=== PATIENT | female | born 1950 | race Caucasian/White ===

== ENCOUNTER 2023-10-11 13:52 | Outpatient (AMB) | payer MEDICARE, OTHER, SELFPAY ==
--- NOTE | 2023-10-11 14:18 | MHC.OFFWIV ---
Intake Vital Signs 10/11/23 14:19 Height 5 ft 3 in Weight 190 lb BMI 33.7 BP 112/80 Blood Pressure Location Lt brachial Position Sitting Pulse 80 Pulse Source Pulse Oximeter Temp 97.5 F Temp Source Temporal Artery Scan Pulse Oximetry (%) 95 Oxygen Delivery Method Room Air Intake Visit Reasons: [employer] Wax removal Intake Note: pt c/o impacted cerumen. Started in LT ear 2 days ago. RT ear feels blocked now Patient Tobacco Use Status: Never used Tobacco Allergies amoxicillin Allergy (Unknown, Verified 10/11/23 14:26) rash clarithromycin [Omeclamox-Gurmeet] Allergy (Unknown, Verified 10/11/23 14:26) Anaphylaxis omeprazole [Omeclamox-Gurmeet] Allergy (Unknown, Verified 10/11/23 14:26) Anaphylaxis Do you need a note to return to daycare/school/sports/work: No HPI HPI Comments History of Present Illness Details This is a 72-year-old female who presented to the walk-in clinic complaining of bilateral blocked ears, left greater than right. She states the left has been worsening for a little while but the right just started yesterday. She denies any significant otalgia. She is otherwise feeling well. [facility] Social History Patient Tobacco Use Status: Never used Tobacco Review of Systems Const All systems reviewed & are unremarkable except as noted in HPI and below Reports no additional complaints Eyes Reports no additional complaints ENT Reports no additional complaints Card Reports no additional complaints Resp Reports no additional complaints GI Reports no additional complaints Reports no additional complaints Musc Reports no additional complaints Skin/Breast Reports system reviewed and no additional complaints, except as documented Neuro Reports no additional complaints Psych Reports no additional complaints Endo Reports no additional complaints Danilo/Lymph Reports no additional complaints Aller/Immun Reports no additional complaints Physical Exam Vital Signs: Last Vital Signs Temp 97.5 F 10/11/23 14:19 Pulse 80 10/11/23 14:19 BP 112/80 10/11/23 14:19 Pulse Ox 95 10/11/23 14:19 Oxygen Delivery Method Room Air 10/11/23 14:19 BMI result Body Mass Index 33.7 Const Other: Vital signs reviewed. Constitutional: Non-toxic appearing. No acute distress. Well-developed and well-nourished. HEENT: Normocephalic and atraumatic. Cerumen impaction bilaterally (left greater than right). Skin: Warm and dry. No rashes or lesions noted. Neck: Full and painless range of motion. Cardio: Regular rate. No lower extremity edema. No JVD. Pulmonary: No respiratory distress. No accessory muscle usage. Gastrointestinal: Soft and non-distended in all 4 quadrants. Musculoskeletal: Normal range of motion in joints throughout the body. No deformity or other signs of injury. Neuro: Alert and oriented x4. Cranial nerves 2-12 grossly intact. No focal deficits appreciated. Psych: Normal mood and affect. Office Procedures Cerumen Removal From which ear canal was the cerumen removed: bilateral Removal: irrigation Notes: patient tolerated procedure well [id number] Irrigation/Lavage Assessment & Plan Assessment & Plan (1) Impacted cerumen of both ears: Code(s): H61.23 - Impacted cerumen, bilateral Plan: This is a 72-year-old female who presented to the office complaining of bilateral cerumen impaction. On physical examination, there is cerumen impaction bilaterally. Patient underwent cerumen removal versus ear irrigation. On reexamination, the ear canals are clear and tympanic membranes are clear without erythema, edema, or bulging bilaterally. Patient reports feeling much better. Patient was advised to follow-up here for recurrent symptoms. Coding Level of Care Code New Pt Level 3 (41770) Diagnoses Impacted cerumen of both ears H61.23 CPT Codes Office Procedure - CPT: 41175-Mbt Irrigation/Lavage ([id number])
[2023-10-11 14:19] VITALS: BP 112/80; PULSE 80; TEMP 36.4; O2SAT 95; BMI 33.7
== END 2023-10-11 15:39 | disposition home or self-care (01) ==
PROVIDERS: PCP Nurse Practitioner Primary Care; Visit Provider Physician Assistant Medical
DX: H61.23 Impacted cerumen, bilateral (principal)
CPT/HCPCS: 69209; 99203

== ENCOUNTER 2024-12-25 13:26 | Outpatient (AMB) | payer MEDICARE, OTHER, SELFPAY ==
--- NOTE | 2024-12-25 13:35 | MHC.OFFWIV ---
Intake Vital Signs 12/25/24 13:39 Height 5 ft 2.5 in Weight 183 lb BMI 32.9 BP 136/80 Blood Pressure Location Lt brachial Position Sitting Pulse 72 Pulse Source Pulse Oximeter Temp 97.8 F Temp Source Oral Pulse Oximetry (%) 98 Oxygen Delivery Method Room Air Intake Visit Reasons: EP Discomfort in right knee Intake Note: Patient presents with right knee soreness x1 month. Patient Tobacco Use Status: Never used Tobacco Allergies amoxicillin Allergy (Unknown, Verified 12/25/24 13:38) rash clarithromycin (Omeclamox-Gurmeet) Allergy (Unknown, Verified 12/25/24 13:38) Anaphylaxis omeprazole (Omeclamox-Gurmeet) Allergy (Unknown, Verified 12/25/24 13:38) Anaphylaxis Do you need a note to return to daycare/school/sports/work: No HPI HPI Comments History of Present Illness Details History of Present Illness - The patient is a 74-year-old female presenting with knee pain following an injury sustained a month ago. - The injury occurred when the patient's knee got stuck under the steering wheel while at a car wash, causing pain on the inside of the knee. - Initially, the knee was sore, and the patient experienced difficulty walking. - The patient reports soreness behind the knee, particularly when flexing the leg, but denies any pain or instability. - The patient has been managing the condition with ice, NSAIDs, and various topical rubs, which have provided temporary relief. - The patient has been wearing a knee brace and performing stretching exercises, although some exercises aggravated the condition. - The patient denies any history of Hartman's cyst or arthritis in the affected knee. - The patient reports improvement in symptoms but notes persistent tightness when ascending or descending stairs. Review of Systems - Musculoskeletal: Reports soreness behind the knee, denies pain or instability. All systems reviewed and are unremarkable except as noted in HPI Physical Exam General: Cooperative, healthy appearing, comfortable, no acute distress and well developed Orientation: Patient oriented x3 Limitations: ambulates normally Head: Normal to inspection Ears: Hearing grossly normal bilaterally Face and sinus: Normal facial exam Eyes: Appearance normal, both eyes and all related structures Neck: Normal visual inspection, full ROM Respiratory: Normal respiratory effort and able to speak in complete sentences. Skin: No rashes or lesions noted Neuro: Patient oriented x3, gait with cane normal Back/spine: no TTP cervical, thoracic or lumbar spine Extremities: knee negative patellar ballottment, no TTP anterior or posterior knee, neg anterior and posterior drawer test, neg varus and valgus joint laxity, full ROM, no skin changes. PFSH Social History Patient Tobacco Use Status: Never used Tobacco Physical Exam Vital Signs: Last Vital Signs Temp 97.8 F 12/25/24 13:39 Pulse 72 12/25/24 13:39 BP 136/80 12/25/24 13:39 Pulse Ox 98 12/25/24 13:39 Oxygen Delivery Method Room Air 12/25/24 13:39 BMI result Body Mass Index 32.9 Assessment & Plan Assessment & Plan (1) MCL sprain of right knee: Code(s): S83.411A - Sprain of medial collateral ligament of right knee, initial encounter Qualifiers: Encounter type: initial encounter Qualified Code(s): S83.411A - Sprain of medial collateral ligament of right knee, initial encounter Plan: Assessment and Plan Knee ligament strain - The patient likely strained the ligaments in the knee, which requires more time to heal. - The recommendation is to reduce walking and rest the knee to allow for recovery. - Ice and topical NSAIDs like Voltaren Gel are advised for symptom relief. - If symptoms persist beyond two to three weeks, further evaluation by an health and nutrition specialist may be necessary. Patient was informed and verbally consented to the use of an ambient scribe for clinic note documentation during this visit. Coding Level of Care Code New Pt Level 3 (05649) Diagnoses Sprain of medial collateral ligament of right knee, initial encounter S83.411A Encounter type: initial encounter
[2024-12-25 13:39] VITALS: BP 136/80; PULSE 72; TEMP 36.6; O2SAT 98; BMI 32.9
--- OUTSIDE RECORDS SUMMARY | 2024-12-25 16:04 | XMS_ITS | Encounter Summary ---
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 Name Role Phone Jackson Palafox CNP Primary Care Provider Encounter Details Date Type Department Care Team (Late st Contact Info) Description 06/08/2024 Transcribe Orders [facility] Oncology Virtual Department [address] [place], [place] [id number] Jackson Palafox CNP [address] [place] [address] [email or web address] Social History Tobacco Use Types Packs/Day Years Used Date Smoking Tobacco: Former Cigarettes 0.2 46.5 0 06/26/1973 - 12/2019 Smokeless Tobacco: Never Alcohol Use Standard Drinks/Week Comments No 0 (1 standard drink = 0.6 oz pur e alcohol) Child or Family Care Answer Date Record ed Do you have problems with on e of the following making it difficult for you to work, study, or receive health care? No 01/04/2021 Education Answer Date Recorded Are you interested in more education? Not on carol e 01/08/2023 Are you concerned about learning? Not on file 01/08/2023 No 01/08/2023 No 01/08/2023 Food Answer Date Recorded Within the past 6 months we worried whether our food would run out before we got money to buy more. Never True 01/04/2021 Within the past 6 months the food we bought just didn't last and we didn't have enough money to get more. Never True Residential Stability Answer Date Recor ded What is your housing situation today? I have grace casey 01/04/2021 How many times have you move d in the past 12 months? Zero (I did not move) 01/04/2021 06 Are you worried that in t he next 2 months, you may not have your own housing to live in? No 01/04/2021 Paying for Meds Answer Date Recorded Do you have trouble paying for medicines? No 01/04/2021 Paying Utility Bills Answer Date Record ed Do you have trouble paying your heating or elect ricity bill? No 01/04/2021 Transportation Answer Date Recorded Has the lack of transportati on kept you from medical appointments or from getting medications? No 01/04/2021 Unemployment Answer Date Recorded Are you currently unemployed or working on a part-time or temporary basis, and looking for work? No 01/04/2021 Digital Access Answer Date Recorded No 08/03/2022 No 08/03/2022 Reliable internet access at home? Not on file 08/03/2022 Device with a working camera? Not on file Intimate Partner Violence Answer Date R ecorded Denied Basic Needs Not on file 01/09/2024 In the past 12 months have y ou been in a relationship with a person who hurts, threatens, or tries to control you? No 01/09/2024 Worried food would run out Not on file 01/08 In the past 12 months have y ou been in a relationship with a person who hurts, threatens, or tries to control you? 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 Not on file Not on file Not on file documented as of this encounter Plan of Treatment Upcoming Encounters Date Type Department Care Team (Late st Contact Info) Description 01/12/2025 2:30 PM EST Office Visit [facility] [address] [place] [address] Jackson Palafox CNP [address] [place] [address] 02/01/2025 1:20 PM EST Office Visit [facility] [address] [place] [address] Savanna Gifford MD [address] [place] [phone] [email or web address] documented as of this encounter Visit Diagnoses Not on filedocumented in this encounter Additional Health Concerns Assessment Noted Time PHQ-2 Depression Total Score: 2 01/09/20 24 11:48 AM EDT documented as of this encounter Care Teams [employer] Machine Operator Relationship Specialty Start Date End Date Jackson Palafox CNP [address] [place] [address], [address] [place] [address] PCP - General Family Medicine 04/03/23 documented as of this encounter Additional Source Comments The information contained in this document represents components of the legal health record. It is not the complete legal health record.[facility]
--- OUTSIDE RECORDS SUMMARY | 2024-12-25 16:04 | XMS_ITS | Clinical Summary ---
Author Organization [facility] Address [address] [place] [address] Phone Care Team Providers Care Bundle Tier Name Role Phone Jackson Palafox Jenny JOSEPH Primary Care Provider Allergies Active Allergy Reactions Criticality Noted Date Comments Amoxicillin Rash,Hives Low 05/14/1999 Medications cholecalciferol (VITAMIN D3) 1,000 unit tablet Take 1 tablet by mouth daily. Active Medication-Free Text Magnesium 500 MG Tablet, Si tablet with a meal Orally Once a day Active vit C,V-equfur-pcakifc hin-minerals (PRESERVISION AREDS-2) capsule 2 (two) times a day. 2 Active cetirizine (ZYRTEC) 10 MG tablet Take 10 mg by mouth as needed for allergies. OTC Active estradioL (ESTRACE) 0.01 % (0.1 mg/gram) vaginal cream Place 2 g vaginally 2 (two) times a week. 4 Active FLUoxetine (PROZAC) 10 MG capsuleIndications :Anxiety TAKE 3 CAPSULES BY MOUTH EVERY DAY 270 capsule 3 5 Active hydroCHLOROthiazid e 25 MG tabletIndications: Essential hypertension TAKE 1 TABLET (25 MG TOTAL) BY MOUTH DAILY. 90 tablet 3 5 Active fluticasone propionate (FLONASE) 50 mcg/actuation nasal sprayIndications:P ND (post-nasal drip) SPRAY 2 SPRAYS BY NASAL ROUTE DAILY 48 mL 1 5 Active ibandronate (BONIVA) 150 mg tablet Take 1 tablet (150 mg total) by mouth every 30 (thirty) days. Take in AM with glass of water prior to food, don't lie down for 30 minutes. 3 tablet 3 5 Active CALCIUM ACETATE ORAL Take by mouth. Active clonazePAM (KLONOPIN) 1 MG tabletIndications: Anxiety TAKE 1/2 TABLET (0.5 MG) BY MOUTH 2 TIMES A DAY NEEDED FOR ANXIETY. 90 tablet 5 Active simvastatin (ZOCOR) 20 MG tabletIndications: Mixed hyperlipidemia Take 1 tablet (20 mg total) by mouth nightly at bedtime. 90 tablet 3 5 Active Active Problems Problem Noted Date Diagnosed Date Vitamin D deficiency 01/14/2024 Overview (01/14/2024): cont supplements Assessment & Plan (05/29/2024 10:57 PM EDT): Was over replaced in 01/2024 while taking 2000 IU D3 daily. Dose decreased to 6 days/week. -Will recheck with next labs Generalized anxiety disorder 01/14/2024 Overview (01/14/2024): cont meds Chronic bilateral low back pain without sciatica 01/09/2023 Chronic prescription benzodiazepine use 01/10/20 23 Hypercholesterolemia 09/09/2022 Overview (01/14/2024): cont meds, due for labs Glaucoma 09/09/2022 Age-related osteoporosis wit hout current pathological fracture 06/26/2018 Assessment & Plan (05/29/2024 11:03 PM EDT): 73-year-old woman diagnosed with osteoporosis on DEXA in 02/2024 with lowest T- score of -3.1 at the lumbar spine and osteopenia at the hip, femoral neck T-score - 2.2. She recalls osteopenia on previous DEXA about 10 years ago. No history of fractures. She lost about 1.5 inches in height. Risk factors for bone loss include early menopause at age 42 though she was treated with HRT for 7 to 8 years. Family history of osteoporosis in mother and sister without fracture. Patient has not tried any osteoporosis medication other than HRT. Her dietary calcium intake is low and she stopped her calcium supplement about 8 years ago because of constipation. She has been on vitamin D supplement with over replacement as of 01/2024. No history of kidney stone. She is doing stretching exercises and walking but no regular resistance exercises. Reviewed normal bone physiology across the lifespan. Reviewed role of adequate calcium, vitamin D, weight-bearing exercise & avoidance of falls along with pharmacologic rx with indications, risks & benefits. Directed to written literature from UpToDate and the bone health and osteoporosis foundation. We discussed medication options, including anti-resorptives, i.e. bisphosphonates, either oral or IV; denosumab, serums like Evista and anabolic agents like teriparetide or Evenity. We discussed the potential risk of ONJ & AFF with the anti-resorptives & concept of a drug holiday after a period of time with the bisphosphonates to help limit the risk of side effects. She is leaning towards using once monthly Boniva -Increase dietary calcium with a goal of 1200 mg daily -Add some resistance exercises -Will check labs to rule out hyperparathyroidism and renal calcium leak -Start Boniva monthly if no contraindication. -Monitor serum CTX on oral antiresorptive -Repeat DEXA after 02/16/2026 Anxiety 06/25/2017 Hypertensive disorder 06/25/2017 Sacroiliac inflammation 06/25/2017 Seasonal allergies 06/25/2017 Resolved Problems Problem Noted Date Diagnosed Date Resolved Date Age-related cataract of both eyes 07/02/2023 07/14/2024 Mixed hyperlipidemia 06/25/2017 024 Encounters Date Type Department Care Team Description 10/23/2024 Orders Only [facility] [place] [address] Jackson Palafox CNP from Last 3 Months Immunizations Immunization Administration Dates Next Due COVID-19 (Pre-12/31) Pfizer Vaccine, mRNA, PF 06/29/2020,06/07/2020 INFLUENZA, SPLIT VIRUS, TRIVALENT PF 01/13/2016 INFLUENZA, SPLIT VIRUS, TRIV ALENT W/ PRESERVATIVE IM 11/30/2013,12/13/2010 Influenza High-Dose Quadriva lent Preservative Free IM 01/05/2022,11/02/2019 Influenza High-Dose Trivalen t Preservative Free IM 12/06/2023,11/18/2018,11/25/2017,12/14 Influenza Quadrivalent Adjuv anted Preservative Free IM 11/30/2022,12/16/2020 Influenza trivalent preserva tive free intradermal 11/27/2012 Influenza, Unspecified Formulation 12/17/2008 Pneumococcal conjugate PCV13 06/25/2017 Pneumococcal polysaccharide PPSV23 01/05/2021, Tdap 04/01/2019,12/13/2010 Zoster live 07/24/2016,08/25/2012 Zoster recombinant 04/22/2020,12/01/2019 Family History Medical History Relation Comments Thyroid disease Daughter Early Father CV disease Mother Diabetes mellitus Mother Kidney disease Mother Anxiety disorder Sister Thyroid disease Sister Relation Status Comments Daughter Alive Father (Age 47) Mother (Age 84) Sister Alive Social History Tobacco Use Types Packs/Day Years Used Date Smoking Tobacco: Former Cigarettes 0.2 46.5 0 06/26/1973 - 12/2019 Smokeless Tobacco: Never Tobacco Cessation:Counseling Given: Not Answered Alcohol Use Standard Drinks/Week Comments No 0 [...] Job Start Date Job End Date 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 Not on file Not on file Not on file Last Filed Vital Signs Vital Sign Reading Time Taken Comments Blood Pressure 98/60 07/14/2024 1:50 PM EDT Pulse 79 07/14/2024 1:50 PM EDT Temperature 36.4 C (97.5 F) 07/14/2024 1:50 PM EDT Respiratory Rate 16 01/09/2023 2:22 PM EDT Oxygen Saturation 98% 07/14/2024 1:50 PM EDT Inhaled Oxygen Concentration - - Weight 81.4 kg (179 lb 6.4 oz) 07/14/2024 1:50 P M EDT Height 158.8 cm (5' 2.52 ) 07/14/2024 1:50 PM ED T Body Mass Index 32.27 07/14/2024 1:50 PM EDT Plan of Treatment Upcoming Encounters Date Type Department Care Team (Late st Contact Info) Description 01/12/2025 2:30 PM EST Office Visit [facility] [address] [place] [address] Jackson Palafox, MOLDED GOODS INSPECTOR TRIMMER [address] [facility], [address] [place] [address] 02/01/2025 1:20 PM EST Office Visit [facility] [address] [place] [address] Savanna Gifford MD [address] [place] [phone] [email or web address] Health Maintenance Due Date Last Done Comments COLONOSCOPY 10/12/1996 FOBT 10/12/1996 SIGMOIDOSCOPY 10/12/1996 VIRTUAL COLONOSCOPY 10/12/1996 FIT TEST 07/19/2017 07/19/2016 COLOGUARD 07/22/2023 07/21/2020 COLORECTAL CANCER SCREENING 07/22/2023 INFLUENZA VACCINE (#1) 2024 , 11/30/2022, 01/05/2022, Additional history exists COVID-19 VACCINE ( season) 2024 01/22/2022, 01/13/2021, 06/29/2020, Additional history exists DEPRESSION SCREENING 01/08/2025 01/09/2024 BLOOD PRESSURE 01/14/2025 07/14/2024 POTASSIUM LEVEL 06/04/2025 06/04/2024, 11/0 07/2023, 01/02/2023, Additional history exists MAMMOGRAM 06/06/2025 06/07/2023, 05/11, 01/11/2021, Additional history exists RSV VACCINE (1 - 1-dose 75+ series) 10/12/2026 LIPID PANEL 01/13/2029 01/14/2024, 12/10, 07/06/2021, Additional history exists Adult Td,Tdap Booster 04/01/2029 04/01/2019, 011 SMOKING STATUS SCREENING (Every 5 Years) 07/14/2029 07/14/2024 ZOSTER VACCINES Completed 04/22/2020, 11/10, 07/24/2016, Additional history exists PNEUMOCOCCAL VACCINES (50+ years) Completed 01/05/2021, 06/25/2017, 05/28/2014 HEPATITIS C SCREENING Completed 07/06/2021 OSTEOPOROSIS SCREENING INITIAL (ONE-TIME) Completed 03/06/2024, 01/09/2023, 01/29/2018 HEPATITIS A VACCINES Aged Out No long er eligible based on patient's age to complete this topic HIB VACCINES Aged Out No longer eligi ble based on patient's age to complete this topic MENINGOCOCCAL VACCINES (ACWY) Aged Out No longer eligible based on patient's age to complete this topic MENINGOCOCCAL VACCINES (B) Aged Out N o longer eligible based on patient's age to complete this topic Medical Devices Not on file Procedures Procedure Name Priority Date/Time Associated Diagnosis Comments COMPREHENSIVE METABOLIC PANEL Routine 06/04/2024 10:12 AM EDT Age-related osteoporosis without current pathological fracture BD DXA MONITORING Routine 03/06/2024 12:34 PM EST Osteopenia of multiple sites LIPID PANEL Routine 01/14/2024 2:06 PM EST Pure hypercholesterolemia HM MAMMOGRAPHY Routine 06/07/2023 10:27 AM EDT HEPATITIS C ANTIBODY, QUALITATIVE Routine 07/06/2021 1:33 PM EDT Need for hepatitis C screening test from Last 3 Months or Most Recently Relevant to Health Maintenance Results * (ABNORMAL) Comprehensive metabolic panel (06/04/2024 10:12 AM EDT) SODIUM 140 133 - 146 mmol/L [facility] POTASSIUM 4.2 3.3 - 5.1 mmol/L [facility] CHLORIDE 103 96 - 108 mmol/L [facility] CO2 28 21 - 35 mmol/L [facility] BUN 13 6 - 19 mg/dL [facility] CREATININE 0.60 0.5 - 1.5 mg/dL [facility] GLUCOSE 114(H) 70 - 99 mg/dL [facility] ALBUMIN 4.2 3.9 - 4.8 g/dL [facility] TOTAL PROTEIN 7.8 6.5 - 8.0 g/dL [facility] CALCIUM 9.7 8.4 - 10.3 mg/dL [facility] ALKALINE PHOSPHATASE 106 39 - 117 U/L [facility] TOTAL BILIRUBIN 0.8 0.0 - 1.2 mg/dL [facility] AST 24 0 - 37 U/L [facility] ALT 21 0 - 40 U/L [facility] GLOBULIN 3.6 1 - 4.8 g/dL [facility] EGFR 95 >59 mL/min/1.7 3m2 [facility] Comment:Estimated glomerular filtration rate calculated using the CKD-EPI refit equation. ANION GAP 13 10 - 20 mmol/L [facility] Blood 06/04/2024 10:1 2 AM EDT 06/04/2024 10:19 AM EDT us Savanna Gifford MD LAB BLOOD ORDERABLES Final Res ult [address] [address] * DXA Monitoring (03/06/2024 12:34 PM EST) Anatomical Region Laterality Modality Bone Density Bone Density us Jackson Palafox MOLDED GOODS INSPECTOR TRIMMER IMG BD BONE DENSITY DE XA Final Result * (ABNORMAL) Lipid panel (01/14/2024 2:06 PM EST) HDL 49 mg/dL [facility] Comment: Interpretation <40 mg/dL: Low HDL cholesterol (major risk factor for CHD) Greater than or equal to 60 mg/dL: High HDL cholesterol ( negative risk factor for CHD) HDL - cholesterol is affected by a number of factors, e.g. smoking, excerise, hormones, sex and age. CHOLESTEROL 147 0 - 240 mg/dL [facility] TRIGLYCERIDES 118 30 - 160 mg/dL [facility] LDL 74 50 - 129 mg/dL [facility] Comment: LDL levels in terms of risk for coronary heart disease: <100 mg/dL: Optimal 100-129 mg/dL: Near or above optimal 130-159 mg/dL: Borderline high 160-189 mg/dL: High >190 mg/dL: Very High CARDIAC RISK RATIO 3.0(L) 3.3 - 4.4 C [facility] Blood 01/14/2024 2:06 PM EST 01/14/2024 2:09 PM EST us Jackson Palafox CNP LAB BLOOD ORDERABLES F inal Result Performing Organization Address [facility]/ZIP Co de Phone Number [address] [address] * MAMMOGRAPHY FOR RESULT ENTRY ONLY (06/07/2023 10:27 AM EDT) Jackson Palafox MOLDED GOODS INSPECTOR TRIMMER HEALTH MAINTENANCE Fin al Result * Hepatitis C antibody, qualitative (07/06/2021 1:33 PM EDT) HCV NON-REACTIV E NON-REACTI VE [facility] Blood 07/06/2021 1:33 PM EDT 07/06/2021 1:37 PM EDT us Cindy Howard NP LAB BLOOD ORDERABLES Final Resu lt Performing Organization Address [facility]/ZIP Co de Phone Number [address] [address] from Last 3 Months or Most Recently Relevant to Health Maintenance Insurance MEDICARE PART A & B Member Subscriber Plan / Payer (Ef fective 2016-Present) Name:Nikki Carias Member ID:[id number] Relation to Subscriber:Self Name:Nikki Carias Subscriber ID:[id number] Payer ID:[id number] Group ID:Not on file Type:Medicare Address: [employer] [address] MEDICARE SUPPLEMENT MEDICARE PART A & B Member Subscriber Plan / Payer ( fective 2016-Present) Name:Nikki Carias Member ID:[id number] Relation to Subscriber:Self Name:Nikki Carias Subscriber ID:[id number] Payer ID:[id number] Group ID:Not on file Type:Medicare Address: [employer] [address] [place] [id number] [place] [address] MEDICARE SUPPLEMENT MEDICARE PART A & B MEDICARE SUPPLEMENT MEDICARE PART A & B MEDICARE SUPPLEMENT MEDICARE PART A & B MEDICARE SUPPLEMENT MEDICARE PART A & B [place] MEDICARE SUPPLEMENT MEDICARE PART A & [place] [address] [address] MEDICARE SUPPLEMENT MEDICARE PART A & B Member Subscriber Plan / Payer (Ef fective 2016-Present) Name:Nikki Carias Member ID:[id number] Relation to Subscriber:Self Name:Nikki Carias Subscriber ID:[id number] Payer ID:[id number] Group ID:Not on file Type:Medicare Address: [employer] [address] MEDICARE SUPPLEMENT MEDICARE PART A & B MEDICARE SUPPLEMENT Care Teams Bundle Tier Relationship Specialty Start Date End Date Jackson Palafox CNP [address] [place] [address], [address] [place] [address] PCP - General Family Medicine 04/03/23 Additional Source Comments The information contained in this document represents components of the legal health record. It is not the complete legal health record.[facility]
--- OUTSIDE RECORDS SUMMARY | 2024-12-25 16:04 | XMS_ITS | Encounter Summary ---
Author Organization [facility] Address [address] [place] [address] [place] [address] Phone Care Team Providers Care Engineering Scientist Name Role Phone Wilma Taylor MD Unavailable Samuel Mireles MD Unavailable Macey Ro PANELBOARD TANK PUMPER Unavailable Sandra Madrigal PANELBOARD TANK PUMPER Unavailable [phone] Cindy Howard PANELBOARD TANK PUMPER Unavailable [phone] Yesica Peck MD Unavailable Samuel Mireles MD Primary Care Provider Cindy Howard PANELBOARD TANK PUMPER Primary Care Provider Samuel Mireles MD Unavailable Jackson Palafox INFORMATION SYSTEMS SECURITY SPECIALIST Primary Care Provider Encounter Details Date Type Department Care Team (Late st Contact Info) Description 06/25/2017 Ancillary Orders [facility] Internal Medicine [address] [place] [address] Cindy Howard, PANELBOARD TANK PUMPER [address] [facility] [address] [place] [address] Social History Tobacco Use Types Packs/Day Years Used Date Smoking Tobacco: Former Cigarettes 0.5 35 1 - 12/20/2016 Smokeless Tobacco: Never Alcohol Use Standard Drinks/Week Comments No 0 (1 standard drink = 0.6 oz pur e alcohol) Comments Unknown Sex and Gender Information Value Date Recorded Sex Assigned at Not on file Legal Sex Female 10:00 PM EDT Gender Identity Not on file Sexual Orientation Not on file documented as of this encounter Plan of Treatment Upcoming Encounters Date Type Department Care Team (Late st Contact Info) Description 01/12/2025 2:30 PM EST Office Visit [facility] Family Medicine [address] [place] [address] Jackson Palafox, INFORMATION SYSTEMS SECURITY SPECIALIST [address] [facility] [place] [address] 02/01/2025 1:20 PM EST Office Visit [facility] [address] [place] [address] Savanna Gifford MD [address] [place] [phone] documented as of this encounter Visit Diagnoses Not on filedocumented in this encounter Additional Health Concerns Assessment Noted Time PHQ-2 Depression Total Score: 0 06/26/19 18 10:01 AM EDT documented as of this encounter Care Teams Engineering Scientist Relationship Specialty Start Date End Date Samuel Mireles MD [address] [place] [address] PCP - General 02/07/17 11/19/17 Cindy Howard NP [address] [place] [address] PCP - General Family Medicine 11/20/17 04/02/23 Jackson Palafox, JAKE [address] [facility] [place] [address] PCP - General Family Medicine 04/03/23 Wilma Taylor MD [address] [place] [address] Historical LMR Provider 12/24/16 Samuel Mireles MD [address] [place] [address] Historical LMR Provider 12/24/16 11/19/17 Macey Ro, SANJAY [address] [place] [address] [address] [place] [address] Historical LMR Provider 12/24/16 Sandra Madrigal, SANJAY [address] [place] [phone] Historical LMR Provider 12/24/16 Cindy Howard NP [address] [address] Historical LMR Provider 12/24/16 11/19/17 Yesica Peck MD [address] [place] [address] Orthopedics & Sports Medicine, [facility] [place] [address] [email or web address] Historical LMR Provider 12/24/16 Samuel Mireles MD [address] [place] [address] [email or web address] Insurance Assigned Provider 07/12/18 04/10/19 documented as of this encounter Additional Source Comments The information contained in this document represents components of the legal health record. It is not the complete legal health record.[facility]
--- OUTSIDE RECORDS SUMMARY | 2024-12-25 16:04 | XMS_ITS | Encounter Summary ---
Author Organization [facility] Address [address] [place] [address] [place] [address] Phone Care Team Providers Care Field Sales Agent Name Role Phone Wilma Taylor MD Unavailable Samuel Mireles MD Unavailable [phone] Macey Ro HAM DOCTOR Unavailable [phone] Sandra Madrigal HAM DOCTOR Unavailable Cindy Howard HAM DOCTOR Unavailable [phone] Yesica Peck MD Unavailable Samuel Mireles MD Primary Care Provider Cindy Howard HAM DOCTOR Primary Care Provider Samuel Mireles MD Unavailable Jackson Palafox ESTHETICS INSTRUCTOR Primary Care Provider Encounter Details Date Type Department Care Team (Late st Contact Info) Description 06/25/2017 Ancillary Orders Virtual Department [address] [place] [address] Cindy Howard, HAM DOCTOR 26 [facility] [address] [place] [address] Breast screening Social History Tobacco Use Types Packs/Day Years [...] Description 01/12/2025 2:30 PM EST Office Visit [facility] [place] [facility] [address] [place] [address] [place] [address] Jackson Palafox, ESTHETICS INSTRUCTOR [address] [place] [address], [address] [place] [address] 02/01/2025 1:20 PM EST Office Visit [facility] [address] [place] [address] [place] [address] Savanna Gifford MD [address] [place] [address] [phone] [email or web address] documented as of this encounter Results * Mammogram Screening (Bilateral) (01/29/2018 4:14 PM EST) Anatomical Region Laterality Modality Breast Left, Breast Right, Breast Bilateral Bila teral Breast Screening us Cindy Howard HAM DOCTOR IMG MG EXAMS Final Result documented in this encounter Visit Diagnoses Diagnosis Breast screening Breast screening, unspecified documented in this encounter Additional Health Concerns Assessment Noted Time PHQ-2 Depression Total Score: 0 06/26/19 18 10:01 AM EDT documented as of this encounter Care Teams Field Sales Agent Relationship Specialty Start Date End Date Samuel Mireles MD [address] [place] [address] PCP - General 02/07/17 11/19/17 Cindy Howard, HAM DOCTOR [address] [place] [address] PCP - General Family Medicine 11/20/17 04/02/23 Jackson Palafox, JAKE 22 [facility] [place] [address] PCP - General Family Medicine 04/03/23 Wilma Taylor MD [address] [place] [address] Historical LMR Provider 12/24/16 Samuel Mireles MD [address] [place] [address] Historical LMR Provider 12/24/16 11/19/17 Macey Ro, SANJAY [address] [place] [address] [address] [place] [address] Historical LMR Provider 12/24/16 Sandra Madrigal NP [address] [place] [address] [phone] Historical LMR Provider 12/24/16 Cindy Howard, HAM DOCTOR [address] [place] [address] 6 [place] [address] Historical LMR Provider 12/24/16 11/19/17 Yesica Peck MD [address] [place] [address] Orthopedics & Sports Medicine, [place] [address] Historical LMR Provider 12/24/16 Samuel Mireles MD [address] [place] [address] [email or web address] Insurance Assigned Provider 07/12/18 04/10/19 documented as of this encounter Additional Source Comments The information contained in this document represents components of the legal health record. It is not the complete legal health record.[facility]
== END 2024-12-25 14:13 | disposition home or self-care (01) ==
PROVIDERS: PCP Nurse Practitioner Primary Care; Visit Provider Physician Assistant
DX: S83.411A Sprain of medial collateral ligament of right knee, initial encounter (principal)

== ENCOUNTER → 2024-12-25 13:26 | Outpatient (BNVA) | payer MEDICARE, OTHER, SELFPAY | PROVIDERS: PCP Nurse Practitioner Primary Care; Visit Provider Physician Assistant | DX: S83.411A Sprain of medial collateral ligament of right knee, initial encounter (principal); V89.2XXA Person injured in unspecified motor-vehicle accident, traffic, initial encounter; Y93.9 Activity, unspecified; Y92.9 Unspecified place or not applicable; Y99.9 Unspecified external cause status | CPT/HCPCS: 99202 ==